=== PATIENT | male | born 2000 | race Caucasian/White ===

== ENCOUNTER 2022-05-01 11:48 | Emergency (ER) | payer SELFPAY ==
--- NOTE | ~2022-05-01 | XR_ITS ---
XR finger 2nd RT min 2V DATE: 05/01/2022 12:31 INDICATION: Laceration and proximal second digit TECHNIQUE: 3 views COMPARISON: None FINDINGS: No fracture or dislocation, periosteal reaction or bone destruction. Joint spaces are prese rved. No erosive change. No subcutaneous emphysema or radiopaque soft tissue foreign body is noted. IMPRESSION: Negative Reviewed, dictated and finalized at location [facility] IMPRESSION: Negative
[2022-05-01 11:57] VITALS: BP 131/78; PULSE 81; RESP 16; TEMP 36.3; O2SAT 100
[2022-05-01] MEDS: LIDOCAINE HCL 2% PF INJ 5 ML VIAL 2 ML INFILTRATE (12:21)
[2022-05-01] MEDS: TETANUS,DIPHTHERIA,AC PERTUSSIS ADULT 0.5 ML (ADACEL) IM (12:21)
[2022-05-01] MEDS: ACETAMINOPHEN 325 MG TABLET 650 MG PO (12:22)
--- NOTE | 2022-05-01 13:02 | ED.WOUNDLAC ---
HPI - Wound/Laceration General Chief Complaint: Wound/Laceration Stated Complaint: finger laceration Time Seen by Provider: 05/01/22 11:52 Source: patient and RN notes reviewed Mode of arrival: ambulatory Limitations: no limitations History of Present Illness HPI narrative: right 2nd finger laceration Onset (ago): hour(s) (1) Extremity Location: Right: hand Place: work Patient tetanus UTD: No Context: accidental Associated symptoms: pain Related Data Home Medications Medication Instructions Recorded Confirmed No Home Medications 05/01/22 05/01/22 Allergies Allergy/AdvReac Type Severity Reaction Status Date / Time No Known Allergies Allergy Verified 05/01/22 12:01 Review of Systems Review of Systems: All systems reviewed & are unremarkable except as noted in HPI and below Constitutional: Constitutional: Reports no additional constitutional complaints Eyes: Eyes: Reports no additional eye complaints ENT: Reports system reviewed and no additional complaints, except as documented Cardiovascular: Cardiovascular: Reports no additional cardiovascular complaints Respiratory: Respiratory: Reports no additional respiratory complaints Gastrointestinal: Gastrointestinal: Reports no additional gastrointestinal complaints Musculoskeletal: Comments: right 2nd finger laceration. Integumentary/Breasts: Skin/Breast: Reports system reviewed and no additional complaints, except as docu Neurologic: Reports system reviewed and no additional complaints, except as documented Psychiatric: Psychiatric: Reports no additional psychiatric complaints Endocrine: Endocrine: Reports no additional endocrine complaints Hematologic/Lymphatic: Hematologic/Lymphatic: Reports no additional hematologic/lymphatic complaints Allergic/Immunologic: Allergic/Immunologic: Reports no additional allergic/immunologic complaints PMFSH Past Medical History Medical History Laceration Exam Const: General: healthy appearing, no acute distress and well nourished Nutritional Appearance: well nourished Orientation/consciousness: patient oriented x3 Limitations: no limitations HENMT: Head: normal to inspection Ears: external ears normal, TM's normal bilaterally and EAC's normal Face/Nose/Sinus: Normal external nose present, Normal nares present, normal facial exam and sinuses nontender Face and sinus: normal facial exam and sinuses nontender Mouth: Yes Normal oral and palatal mucosa present and Yes moist mucous membranes Teeth and gingiva: dentition normal Throat: posterior oropharynx normal Eyes: Conjunctivae: conjunctivae normal Pupils: Equal, round and reactive pupils present EOM: EOMs intact bilaterally Neck: Neck: normal visual inspection, no lymphadenopathy and no meningeal signs Chest: Chest palpation & inspection: normal inspection of the chest Resp: Effort & Inspection: normal respiratory effort Auscultation: clear to auscultation bilaterally Cardio: Rate: regular rate Rhythm: regular rhythm GI: GI Palp: Yes Soft to palpation and No Tenderness to palpation present (GI) Auscultation: normal bowel sounds : General: Yes bladder normal to palpation and Yes no CVA tenderness Back/Spine/Pelvis: Back: no CVA tenderness Skin: General skin exam: normal color Rashes: no rashes Wounds: no wounds Neuro: General: patient oriented x3, moves all extremities, no meningeal signs, no focal motor deficits and CN's II-XI intact bilaterally Cranial nerves: Yes Equal, round and reactive pupils present and Yes Nystagmus not present Speech: normal speech Gait exam (Neuro): Normal gait present Extrem: General: normal to inspection and no pedal edema Other: 1.2 cm well approx linear laceration dorsal right 2nd finger, full ROM. Psych: Mental Status: mental status grossly normal Affect: normal affect Attitude: cooperative Course Course Emergency Course: Pt was stable,
[2022-05-01 13:12] VITALS: BP 131/78; PULSE 81; RESP 16; TEMP 36.3; O2SAT 100
== END 2022-05-01 13:14 | disposition home or self-care (01) ==
PROVIDERS: Emergency Provider Emergency Medicine; PCP Physician Assistant
DX: S61.210A Laceration without foreign body of right index finger without damage to nail, initial encounter (principal); W45.8XXA Other foreign body or object entering through skin, initial encounter
CPT/HCPCS: 12001; 73140; 90471; 90715; 99283; A9270